=== PATIENT | male | born 1985 | race African-American/Black ===

== ENCOUNTER → 2021-09-15 | Outpatient (CLI) | payer OTHER ==
[~2021-09-15] MED LIST: AMOXICILLIN 8751 TAB PO; CLEOCIN HC150 MG/CAP PO; NO HOME MEDICATIONS; PERCOCET 325 MG1 TA2 PO; PREDNISONE20 MG PO
== END ==
LOC: ZCOL.LAB 13:06
DX: Z02.83 Encounter for blood-alcohol and blood-drug test (principal)